=== PATIENT | female | born 1990 | race American Indian/Alaskan Native ===

== ENCOUNTER 2019-01-07 12:30 | Emergency (ER) | payer MEDICAID ==
[2019-01-07 13:12] VITALS: O2SAT 98
[2019-01-07 13:51] LABS: BASO # 0.1 K/uL (0.0-0.2); BASO % 0.6 % (0.0-2.0); EOS % 0.1 % (0.0-4.0); HEMOGLOBIN 11.4 g/dL (11.0-16.0); LYMPH # 2.2 K/uL (1.0-4.3); LYMPH % 27.9 % (20.0-40.0); MEAN CELL VOLUME 85.4 fL (81.0-99.0); MEAN CORPUSCULAR HEMOGLOBIN 28.1 pg (27.0-31.0); MEAN CORPUSCULAR HGB CONC 32.9 g/dL (33.0-37.0); MEAN PLATELET VOLUME 7.7 fL (7.2-11.7); MONO # 0.5 K/uL (0.0-0.8); MONO % 6.4 % (0.0-10.0); NEUT # 5.2 K/uL (1.8-7.0); RBC 4.04 Mil/uL (3.80-5.20); RED CELL DISTRIBUTION WIDTH 15.5 % (11.5-14.5)
--- NOTE | 2019-01-07 13:54 | C.PDOC ---
History Of Present Illness 28 y/o female, with history of bipolar disorder, presents to ED with reported self-inflicted injury from 3 days ago. Patient states she cut her wrist and burnt herself with a dandy tender. She denies any other injuries or complaints. She denies feeling suicidal at this time. Time Seen by Provider: 01/07/19 12:45 Chief Complaint (Nursing): Psychiatric Evaluation History Per: Patient History/Exam Limitations: no limitations Onset/Duration Of Symptoms: Days Current Symptoms Are (Timing): Still Present Past Medical History Reviewed: Historical Data, Nursing Documentation, Vital Signs Vital Signs: Last Vital Signs Temp 98.2 F 01/07/19 12:52 Pulse 115 H 01/07/19 12:52 Resp 20 01/07/19 12:52 BP 106/70 01/07/19 12:52 Pulse Ox 98 01/07/19 12:52 Primary Care Provider: FAMILY PROVIDER,NO - Medical History PMH: Anxiety, Bipolar Disorder, Personality Disorder Family History: States: No Known Family Hx - Social History Hx Alcohol Use: Yes Hx Substance Use: Yes (marijuana use a few times per week.) - Immunization History Hx Tetanus Toxoid Vaccination: No Hx Influenza Vaccination: No Hx Pneumococcal Vaccination: No Review Of Systems Except As Marked, All Systems Reviewed And Found Negative. Constitutional: Negative for: Fever, Chills Musculoskeletal: Positive for: Other (self-inflicted injury in wrist) Psych: Negative for: Suicidal ideation, Other (homicidal ideation) Physical Exam - Physical Exam Appears: Non-toxic, No Acute Distress Skin: Warm, Dry Head: Normacephalic Eye(s): bilateral: Normal Inspection Oral Mucosa: Moist Neck: Supple Cardiovascular: Rhythm Regular, No Murmur Respiratory: Normal Breath Sounds, No Rales, No Rhonchi, No Wheezing Extremity: Bilateral: Normal Color And Temperature, Normal ROM Neurological/Psych: Oriented x3, Normal Speech ED Course And Treatment - Laboratory Results Result Diagrams: 01/07/19 13:47 01/07/19 13:47 O2 Sat by Pulse Oximetry: 98 (RA) Pulse Ox Interpretation: Normal Medical Decision Making Medical Decision Making: Plan: --Labs --Urinalysis cleared by crisis. medically clear Disposition - Disposition Disposition: HOME/ ROUTINE Disposition Time: 18:00 Condition: STABLE Additional Instructions: return to er with worsening symptoms or concerns. Instructions: Bipolar Disorder Forms: [employer] (Irish) - Clinical Impression Clinical Impression: Bipolar 1 disorder
[2019-01-07 13:59] LABS: SQUAMOUS EPITHIAL 3 /hpf (0-5); URINE BILIRUBIN NEGATIVE (NEGATIVE); URINE BLOOD NEGATIVE (NEGATIVE); URINE CLARITY Clear (Clear); URINE COLOR Yellow (YELLOW); URINE GLUCOSE (UA) NORMAL (Normal); URINE LEUKOCYTE ESTERASE NEG Leu/uL (Negative); URINE PROTEIN NEGATIVE (NEGATIVE)
[2019-01-07 14:03] LABS: HCG,QUALITATIVE URINE NEGATIVE (NEGATIVE)
[2019-01-07 14:04] LABS: ACETAMINOPHEN < 10.0 ug/mL (10.0-30.0); ALB/GLOB RATIO 1.2 (1.0-2.1); ALBUMIN 3.8 g/dL (3.5-5.0); ALT/SGPT 19 U/L (9-52); AST/SGOT 22 U/L (14-36); BLOOD UREA NITROGEN 13 mg/dL (7-17); CALCIUM 8.9 mg/dl (8.6-10.4); GFR NON-AFRICAN AMERICAN > 60; SALICYLATE < 1.0 mg/dL 1
[2019-01-07 14:17] LABS: BARBITURATES, UR NEGATIVE (NEGATIVE); BENZODIAZEPINES, UR NEGATIVE (NEGATIVE); OPIATES, UR NEGATIVE (NEGATIVE); PHENCYCLIDINE, UR NEGATIVE (NEGATIVE)
[2019-01-07 18:20] VITALS: BP 108/72; PULSE 100; RESP 18; TEMP 98.1
== END 2019-01-07 18:20 | disposition home or self-care (01) ==
LOC: C.ER 12:30
DX: F31.9 Bipolar disorder, unspecified (principal)